=== PATIENT | female | born 1980 ===

== ENCOUNTER 2017-04-17 13:03 | Emergency (ER) | payer OTHER ==
[~2017-04-17] VITALS: Ht 152.4 cm; Wt 112.0 kg
[2017-04-17 13:08] VITALS: Ht 152.4 cm; Wt 112.0 kg
[2017-04-17] MEDS ORDERED: KETOROLAC 15 MG INJ IV STA (16:45)
[2017-04-17] MEDS ORDERED: ONDANSETRON 4 MG INJ IV STA (16:45)
[2017-04-17] MEDS ORDERED: METH500T PO (16:48)
[2017-04-17] MEDS ORDERED: IBUP-1542 PO (16:48)
[2017-04-17 17:34] VITALS: BP 125/69; PULSE 77; RESP 18; TEMP 99
--- NOTE | 2017-04-17 21:07 | ERD ---
ER Documentation Chief Complaint Chief Complaint MUSCLE SPAMS NOT EAT N/V BODY ACHES HPI 28-year-old woman here complaining of low back muscle spasm, she states spasming has been present for 1 day and she is used oral analgesics at home without relief. She states she has a long history of low back pain, muscle spasms, and has also been experiencing intermittent chest pain. Her chest pain is been sharp nonexertional nonradiating and intermittent and usually lasting for a few minutes. She denies history of [place], no fevers or chills, no cough, no calf or leg swelling, no dysuria, no paresis or paresthesias. ROS All systems reviewed and are negative except as per history of present illness. Medications Home Meds Active Scripts Methocarbamol* (Robaxin*) 500 Mg Tab, 500 MG PO Q8 for MUSCLE SPASMS, #12 TAB Prov:LENCHO LANDRUM MD 04/17/17 Ibuprofen* (Ibuprofen*) 600 Mg Tablet, 600 MG PO Q8 for PAIN AND/OR INFLAMMATION , #30 TAB Prov:LENCHO LANDRUM MD 04/17/17 Allergies Allergies: Coded Allergies: metformin (Verified Allergy, Unknown, HIVES, 04/17/17) PMhx/Soc Obesity, diabetes mellitus Medical and Surgical Hx: pt denies Medical Hx, pt denies Surgical Hx Hx Alcohol Use: No Hx Substance Use: No Hx Tobacco Use: No Smoking Status: Never smoker FmHx Family History: diabetes Physical Exam Vitals Vital Signs Date Time Temp Pulse Resp B/P Pulse Ox O2 Delivery O2 Flow Rate FiO2 04/17/17 17:34 99.0 77 18 125/69 99 Room Air 04/17/17 13:08 98.8 66 18 111/66 96 Physical Exam GENERAL: Well-developed, well-nourished, well-hydrated, in no apparent distress , looks nontoxic in appearance HEENT: Moist mucous membranes, pink conjunctiva, no cervical spine tenderness or step-off deformities, no goiter, no jaundice or icterus, extraocular movements intact without pain. No submandibular induration, and no pharyngeal erythema NEURO: Alert and oriented 3, cranial nerves II through XII intact bilaterally, pupils equal round reactive to light, no focal deficits or facial asymmetry, sensation intact distally Strength 5/5 in upper and lower extremities bilaterally CARDIAC: Regular rate and rhythm, no murmurs rubs or gallops LUNGS: Clear bilaterally no wheezing crackles or stridor ABDOMEN: Soft nontender, no guarding, no rigidity, no rebound, no psoas sign no obturator sign. Normoactive bowel sounds SKIN: Warm and dry to touch, no abrasions, contusions, or hematomas, no lacerations, no ecchymosis, no target lesions, and without ulcers EXTREMITIES: No clubbing cyanosis or edema, calves are bilaterally symmetrical, no Homans sign, no popliteal cord sign. 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 Patient was afebrile EKG performed, read by me: 92 bpm, normal sinus rhythm, normal axis, no acute ST segment changes, narrow QRS complex, with good R-wave progression in precordial leads. Troponin was negative. I administered Toradol 15 mg IV 1 and Zofran 4 mg IV for nausea although she had no episodes of vomiting while here. Patient's examination was unremarkable and no indication for any further intervention. Unfortunately she was very unhappy with her care today because she did not receive Dilaudid or morphine. She stated NSAIDs including Toradol "do not work for her", and wanted something stronger, specifically IV opioids. I refused to administer any further analgesics and told her to follow-up with the pain specialist, and educated her about muscular spasms of the back, and if they cause such severe pain that she requires IV opioid she may need to seek the care of a pain specialist to help her with opioid addiction. Differential diagnoses considered, included but not limited to acute coronary syndrome, pulmonary embolism, aortic dissection, abdominal aortic aneurysm, sepsis, stroke, meningitis, encephalitis, pneumonia, appendicitis, cholecystitis , bowel obstruction, pyelonephritis, nephrolithiasis, cystitis, as well as metabolic, hematologic, and electrolyte abnormalities. As well as abscess, cellulitis, fractures, and dislocations. Patient feels much better at this time, and vital signs are normal, symptoms have improved. I did give strict instructions to return to the ED if symptoms continue or worsen, patient will otherwise follow-up with primary care physician. Patient understood instructions and agreed to plan. Disclaimer: Inadvertent spelling and grammatical errors are likely due to EHR/ dictation software use and do not reflect on the overall quality of patient care. Also, please note that the electronic time recorded on this note does not necessarily reflect the actual time of the patient encounter. Departure Diagnosis: Primary Impression: Back strain Encounter type: initial encounter Qualified Code: S39.012A - Back strain, initial encounter Additional Impressions: Chest pain Chest pain type: unspecified Qualified Code: R07.9 - Chest pain, unspecified type Drug-seeking behavior Condition: Good Patient Instructions: Chest Pain, Uncertain Cause, Muscle Spasm Referrals: KADIE YOST MD, MARK P. MD ZOHRABIAN, DAVID MD Apr 17, 2017 21:07
== END 2017-04-17 17:36 | disposition home or self-care (01) ==
LOC: E/R 13:03
DX: S39.012A Strain of muscle, fascia and tendon of lower back, initial encounter (principal); S29.001A Unspecified injury of muscle and tendon of front wall of thorax, initial encounter; X58.XXXA Exposure to other specified factors, initial encounter; Y92.9 Unspecified place or not applicable; Z72.89 Other problems related to lifestyle
CPT/HCPCS: 36415; 84484; 93005; 96374; 96375; J1885; J2405; Z7502